=== PATIENT | female | born 1990 | race Caucasian/White ===

== ENCOUNTER → 2021-03-14 | Outpatient (CLI) | payer OTHER, BC ==
[2021-03-15 17:10] LABS: HPV 16 Negative (Negative); HPV 18 Negative (Negative); HPV OTHER HR TYPES Negative (Negative)
== END | disposition home or self-care (01) ==
LOC: LAB SHORT 12:00
PROVIDERS: Advanced Practice Midwife
DX: Z01.419 Encounter for gynecological examination (general) (routine) without abnormal findings (principal)
CPT/HCPCS: 87624; G0123

== ENCOUNTER → 2021-06-27 | Outpatient (CLI) | payer OTHER, BC ==
[2021-06-27 18:20] LABS: Source, Urine Voided
[2021-06-27 19:22] LABS: Bacteria Rare /hpf; Red Blood Cells, Urine 0-2 /hpf (0-2); Squamous Epithelial Cells Few /hpf (Few); White Blood Cells, Urine 0-2 /hpf (0-5)
== END ==
LOC: LAB 16:00 → LAB SHORT 16:00
PROVIDERS: Advanced Practice Midwife
DX: Z34.01 Encounter for supervision of normal first pregnancy, first trimester (principal)
CPT/HCPCS: 81015

== ENCOUNTER → 2021-07-25 | Outpatient (CLI) | payer OTHER, BC ==
[2021-07-27 00:08] LABS: CHLAMYDIA TRACHOMATIS, NAA Negative (Negative)
== END | disposition home or self-care (01) ==
LOC: LAB SHORT 14:16
PROVIDERS: Advanced Practice Midwife
DX: Z11.3 Encounter for screening for infections with a predominantly sexual mode of transmission (principal)
CPT/HCPCS: 87491; 87591

== ENCOUNTER → 2021-08-25 | Outpatient (CLI) | payer OTHER, BC ==
[~2021-08-25] MED LIST: Colace100 MG PO; IBUP800 PO; MAGNESIUM OXID500 MG PO; PANT40 PO; PRENATAL TABLE1 EAC2
[2021-09-01 20:06] LABS: AFP MOM 1.16 (.); AFP VALUE 49.5 ng/mL (.); GEST. AGE ON COLLECTION DATE 17.3 weeks (.); INSULIN DEP DIABETES No (.); MATERNAL AGE AT EDD 30.6 yr (.); MULTIPLE GESTATION No (.); OSBR RISK 1 IN 7366 (.); RACE Other (.); TEST RESULTS: *Screen Negative* (.); WEIGHT 143 lbs (.)
== END | disposition home or self-care (01) ==
LOC: LAB 16:25
PROVIDERS: Advanced Practice Midwife
DX: O09.92 Supervision of high risk pregnancy, unspecified, second trimester (principal)
CPT/HCPCS: 82105

== ENCOUNTER → 2021-12-29 | Outpatient (CLI) | payer OTHER, BC | END | disposition home or self-care (01) | LOC: LAB 13:51 → LAB SHORT 13:51 | DX: O09.92 Supervision of high risk pregnancy, unspecified, second trimester (principal) | CPT/HCPCS: 87081; 87150 ==

== ENCOUNTER 2022-01-29 20:10 | Inpatient (IN) | payer OTHER, BC ==
[~2022-01-29] VITALS: Ht 172.7 cm; Wt 72.3 kg
[2022-01-29] MEDS ORDERED: MAGNESIUM OXID500 MG PO (20:58)
[2022-01-29] MEDS ORDERED: PRENATAL TABLE1 EAC2 (20:58)
[2022-01-29 21:33] LABS: BASOPHILS ABSOLUTE AUTO 0.04 K/mm3 (0.00-0.23); BASOPHILS PERCENT AUTO 0 % (0-2); EOSINOPHILS ABSOLUTE AUTO 0.05 K/mm3 (0.00-0.68); EOSINOPHILS PERCENT AUTO 1 % (0-6); Hemoglobin 13.7 g/dL (11.5-16.0); IMMATURE GRAN ABSOLUTE AUTO 0.09 K/mm3 (0.00-0.10); IMMATURE GRAN PERCENT AUTO 1 % (0-1); LYMPHOCYTES ABSOLUTE AUTO 2.46 K/mm3 (0.84-5.20); LYMPHOCYTES PERCENT AUTO 23 % (21-46); MONOCYTES ABSOLUTE AUTO 1.12 K/mm3 (0.16-1.47); MONOCYTES PERCENT AUTO 10 % (4-13); Mean Corpuscular HGB 29.6 pg (26.0-34.0); Mean Corpuscular HGB Conc 34.3 g/dL (31.5-36.5); Mean Corpuscular Volume 86 fL (80-100); Mean Platelet Volume 12.6 fL (9.1-12.4); NEUTROPHILS ABSOLUTE AUTO 7.06 K/mm3 (1.96-9.15); NEUTROPHILS PERCENT AUTO 65 % (41-73); Platelet Count 159 K/mm3 (150-400); RDW Standard Deviation 40.6 fL (35.1-46.3); Red Blood Cell Count 4.63 M/mm3 (3.80-5.20); White Blood Cell Count 10.82 K/mm3 (4.00-11.30)
[2022-01-29] MEDS ORDERED: PANT40 PO (21:40)
--- NOTE | 2022-01-30 11:25 | NUR ---
CATH DC/D AT 2622
[2022-01-30] MEDS ORDERED: IBUP800 PO (16:56)
[2022-01-30] MEDS ORDERED: Colace100 MG PO (16:57)
[2022-01-30 20:03] LABS: Source, Urine Foley catheter
[2022-01-30 20:08] LABS: Appearance, Urine Clear (Clear); Bilirubin, Urine Neg (Neg); Blood, Urine 4+ (Neg); Color, Urine Yellow (P-Yellow); Glucose Qualitative, Urine Neg (Neg); Ketones, Urine Neg (Neg); Leukocyte Esterase, Urine Neg (Neg); Nitrite, Urine Neg (Neg); Protein, Urine Neg (Neg); Specific Gravity, Urine 1.005 (1.003-1.022); Urobilinogen, Urine NORM (Normal)
[2022-01-30 20:16] LABS: Bacteria Rare /hpf; Red Blood Cells, Urine 0-2 /hpf (0-2); Squamous Epithelial Cells Not Seen /hpf (Few); Transitional Epithelial Cells Rare /hpf (0-Rare); White Blood Cells, Urine 0-2 /hpf (0-5)
== END 2022-01-31 15:40 | disposition home or self-care (01) | DRG 807 ==
LOC: BC 20:10 → OBS 20:10 → BC 20:12 → OBS 20:30 → BC 20:31
PROVIDERS: Advanced Practice Midwife; ADMIT Family Medicine
PROC: 10E0XZZ Delivery of Products of Conception, External Approach (ICD-10-PCS; principal; 2022-01-30)
PROC: 0KQM0ZZ Repair Perineum Muscle, Open Approach (ICD-10-PCS; 2022-01-30)
PROC: 3E0R3BZ Introduction of Anesthetic Agent into Spinal Canal, Percutaneous Approach (ICD-10-PCS; 2022-01-30)
PROC: 00HU33Z Insertion of Infusion Device into Spinal Canal, Percutaneous Approach (ICD-10-PCS; 2022-01-30)
PROC: 3E0234Z Introduction of Serum, Toxoid and Vaccine into Muscle, Percutaneous Approach (ICD-10-PCS; 2022-01-30)
DX: O26.893 Other specified pregnancy related conditions, third trimester (principal); Z37.0 Single live birth; O64.0XX0 Obstructed labor due to incomplete rotation of fetal head, not applicable or unspecified; O77.0 Labor and delivery complicated by meconium in amniotic fluid; Z3A.39 39 weeks gestation of pregnancy; O69.1XX0 Labor and delivery complicated by cord around neck, with compression, not applicable or unspecified; Z67.91 Unspecified blood type, Rh negative; Z98.890 Other specified postprocedural states; Z88.5 Allergy status to narcotic agent
CPT/HCPCS: 36415; 51702; 81001; 82947; 85025; 85460; 86850; 86870; 86900; 86901; A9270; J1885; J2001; J2210; J2405; J2590; J2791; J3010; J7120

== ENCOUNTER → 2024-09-12 | Outpatient (CLI) | payer OTHER, BC ==
[2024-09-12 18:26] LABS: BASOPHILS ABSOLUTE AUTO 0.02 K/mm3 (0.00-0.23); BASOPHILS PERCENT AUTO 0 % (0-2); EOSINOPHILS ABSOLUTE AUTO 0.05 K/mm3 (0.00-0.68); EOSINOPHILS PERCENT AUTO 1 % (0-6); Hematocrit 34.3 % (33.0-51.0); Hemoglobin 11.5 g/dL (11.5-16.0); IMMATURE GRAN ABSOLUTE AUTO 0.04 K/mm3 (0.00-0.10); IMMATURE GRAN PERCENT AUTO 0 % (0-1); LYMPHOCYTES ABSOLUTE AUTO 1.55 K/mm3 (0.84-5.20); LYMPHOCYTES PERCENT AUTO 16 % (21-46); MONOCYTES ABSOLUTE AUTO 0.81 K/mm3 (0.16-1.47); MONOCYTES PERCENT AUTO 9 % (4-13); Mean Corpuscular HGB 30.5 pg (26.0-34.0); Mean Corpuscular HGB Conc 33.5 g/dL (31.5-36.5); Mean Corpuscular Volume 91 fL (80-100); Mean Platelet Volume 10.3 fL (9.1-12.4); NEUTROPHILS PERCENT AUTO 74 % (41-73); Platelet Count 182 K/mm3 (150-400); RDW Coefficient Variation 13.6 % (11.7-14.2); RDW Standard Deviation 45.1 fL (35.1-46.3); Red Blood Cell Count 3.77 M/mm3 (3.80-5.20); White Blood Cell Count 9.47 K/mm3 (4.00-11.30)
[2024-09-12 18:36] LABS: Albumin, Blood 2.8 g/dL (3.4-5.0); Albumin/Globulin Ratio 0.8 (0.8-1.8); Bilirubin, Total 0.2 mg/dL (0.1-1.0); Bun/Creatinine Ratio 11.7 (12.0-20.0); Calcium, Blood 8.8 mg/dL (8.5-10.1); Creatinine, Blood 0.77 mg/dL (0.40-1.00); Globulin, Blood 3.4 g/dL (2.2-4.0); Potassium, Blood 3.6 mmol/L (3.5-5.5); Total Protein, Blood 6.2 g/dL (6.4-8.2)
== END ==
LOC: LAB 18:21 → LAB SHORT 18:21
DX: R00.2 Palpitations (principal)
CPT/HCPCS: 80053; 85025

== ENCOUNTER → 2024-09-23 | Outpatient (CLI) | payer OTHER, BC | END | disposition home or self-care (01) | LOC: LAB SHORT 11:22 → LAB 11:22 | DX: O09.90 Supervision of high risk pregnancy, unspecified, unspecified trimester (principal) | CPT/HCPCS: 87081; 87150 ==

== ENCOUNTER 2024-10-09 00:45 | Inpatient (IN) | payer OTHER, BC ==
[~2024-10-09] VITALS: Ht 172.7 cm; Wt 77.3 kg
[2024-10-09] VITALS (13 sets, daily range): BP systolic 113–139; BP diastolic 67–86
[2024-10-09] MEDS ORDERED: Misoprostol 200 MCG Tab BC PRN (00:50)
[2024-10-09] MEDS ORDERED: Tranexamic Acid 100 ML IV SCH (00:50)
[2024-10-09] MEDS ORDERED: Methylergonovine Maleate 0.2MG / ML 1ML Amp IM PRN ×2 (00:50→02:35)
[2024-10-09] MEDS ORDERED: FentaNYL 2mcg/ml-Bup 0.1% Epd 250 ML EPI PRN (00:50)
[2024-10-09] MEDS ORDERED: ePHEDrine Sulfate 50 MG/ML 1ML Injection XX PRN (00:50)
[2024-10-09] MEDS ORDERED: OXYTOCIN/RINGER'S LACTATE 500 ML IV PRN (00:50)
[2024-10-09] MEDS ORDERED: Misoprostol 200 MCG Tab PR PRN ×2 (00:50→02:35)
[2024-10-09] MEDS ORDERED: Oxytocin 10 Unit / ML Vial IM PRN (00:50)
[2024-10-09] MEDS ORDERED: Lactated Ringer's 1,000 ML IV PRN ×3 (00:50→00:55)
[2024-10-09] MEDS ORDERED: Carboprost Tromethamine 250 MCG/ML 1ML Amp IM PRN ×2 (00:50→02:30)
[2024-10-09] MEDS ORDERED: Ondansetron HCl 2 MG / ML 2ML Vial IV PRN (00:55)
[2024-10-09] MEDS ORDERED: Calcium Carbonate 500 MG Tab Chew PO PRN (00:55)
[2024-10-09] MEDS ORDERED: Acetaminophen 500 MG Tab PO PRN ×2 (00:55→02:40)
[2024-10-09] MEDS ORDERED: FentaNYL Citrate 50 MCG/ML 2 ML Injection IV PRN (01:00)
[2024-10-09 01:19] LABS: BASOPHILS ABSOLUTE AUTO 0.03 K/mm3 (0.00-0.23); BASOPHILS PERCENT AUTO 0 % (0-2); EOSINOPHILS ABSOLUTE AUTO 0.06 K/mm3 (0.00-0.68); EOSINOPHILS PERCENT AUTO 1 % (0-6); Hematocrit 36.3 % (33.0-51.0); Hemoglobin 12.3 g/dL (11.5-16.0); IMMATURE GRAN ABSOLUTE AUTO 0.04 K/mm3 (0.00-0.10); IMMATURE GRAN PERCENT AUTO 0 % (0-1); LYMPHOCYTES ABSOLUTE AUTO 1.58 K/mm3 (0.84-5.20); LYMPHOCYTES PERCENT AUTO 17 % (21-46); MONOCYTES ABSOLUTE AUTO 0.87 K/mm3 (0.16-1.47); MONOCYTES PERCENT AUTO 9 % (4-13); Mean Corpuscular HGB 30.1 pg (26.0-34.0); Mean Corpuscular HGB Conc 33.9 g/dL (31.5-36.5); Mean Corpuscular Volume 89 fL (80-100); Mean Platelet Volume 10.3 fL (9.1-12.4); NEUTROPHILS ABSOLUTE AUTO 6.73 K/mm3 (1.96-9.15); NEUTROPHILS PERCENT AUTO 72 % (41-73); Platelet Count 193 K/mm3 (150-400); RDW Coefficient Variation 13.6 % (11.7-14.2); RDW Standard Deviation 43.7 fL (35.1-46.3); Red Blood Cell Count 4.08 M/mm3 (3.80-5.20); White Blood Cell Count 9.31 K/mm3 (4.00-11.30)
[2024-10-09] MEDS ORDERED: Docusate Sodium 100 MG Cap PO PRN (02:30)
[2024-10-09] MEDS ORDERED: Witch Hazel/Glycerin PADS TOP PRN (02:30)
[2024-10-09] MEDS ORDERED: Benzocaine Topical Anesthetic Spray 60GM TOP PRN (02:30)
[2024-10-09] MEDS ORDERED: Lanolin Cream TOP PRN (02:35)
[2024-10-09] MEDS ORDERED: Ibuprofen 400 MG Tab PO PRN (02:35)
[2024-10-09] MEDS ORDERED: Ketorolac Tromethamine 30mg Vial IV PRN (02:35)
[2024-10-09] MEDS ORDERED: Rho(D) Immune Globulin 300 MCG / SYR IM ONE ×2 (02:35→09:10)
[2024-10-09] MEDS ORDERED: Lactated Ringer's 1,000 ML IV SCH (02:35)
[2024-10-09] MEDS ORDERED: OXYTOCIN/RINGER'S LACTATE 500 ML IV SCH (02:40)
[2024-10-09] MEDS ORDERED: Oxytocin 10 Unit / ML Vial IM ONE (02:40)
[2024-10-09] MEDS ORDERED: Prenatal Vit/FE Fumarate/FA 1 Tab PO SCH (09:00)
--- NOTE | 2024-10-09 10:51 | NUR ---
Assumed care from Thu Montes RN. Pt resting in bed, visiting with family and NB. Medicated w/stool softner, PNV and tums. Denies other needs at this time.
[2024-10-09] MEDS ORDERED: Hydrocortisone 2.5% Cream 30 gm Tube PR PRN (18:05)
[2024-10-10 02:25] VITALS: BP 119/73
[2024-10-10 05:53] VITALS: BP 115/56
[2024-10-10 07:29] VITALS: BP 127/56
[2024-10-10 10:40] VITALS: BP 128/77
== END 2024-10-10 10:57 | disposition home or self-care (01) | DRG 807 ==
LOC: OBS 00:45 → BC 00:48 → OBS 01:02 → BC 01:02
PROVIDERS: ADMIT Advanced Practice Midwife
PROC: 10E0XZZ Delivery of Products of Conception, External Approach (ICD-10-PCS; principal; 2024-10-09)
PROC: 4A1HXCZ Monitoring of Products of Conception, Cardiac Rate, External Approach (ICD-10-PCS; 2024-10-09)
PROC: 3E0234Z Introduction of Serum, Toxoid and Vaccine into Muscle, Percutaneous Approach (ICD-10-PCS; 2024-10-09)
DX: O99.892 Other specified diseases and conditions complicating childbirth (principal); Z37.0 Single live birth; R00.0 Tachycardia, unspecified; O26.893 Other specified pregnancy related conditions, third trimester; Z67.41 Type O blood, Rh negative; O99.814 Abnormal glucose complicating childbirth; Z3A.38 38 weeks gestation of pregnancy; Z23 Encounter for immunization; Z88.5 Allergy status to narcotic agent
CPT/HCPCS: 36415; 59025; 85025; 85460; 86850; 86870; 86900; 86901; 99214; A9270; J1885; J2590; J2791; J3010; J7120

== ENCOUNTER → 2024-11-25 | Outpatient (CLI) | payer OTHER, BC | LOC: LAB SHORT 10:49 → LAB 10:49 | PROVIDERS: Advanced Practice Midwife | DX: Z01.419 Encounter for gynecological examination (general) (routine) without abnormal findings (principal) | CPT/HCPCS: 87624; G0123 ==